=== PATIENT | male | born 1990 | race African-American/Black ===

== ENCOUNTER 2021-05-11 16:54 | Emergency (ER) | payer MEDICAID ==
[~2021-05-11] VITALS: Ht 167.6 cm; Wt 95.3 kg
--- NOTE | 2021-05-11 17:03 | NUR ---
CALLED FOR PATIENT, IS NOT IN LOBBY
[2021-05-11 17:09] VITALS: BP 138/67
[2021-05-11 17:25] VITALS: BP 138/67
--- NOTE | 2021-05-11 17:25 | NUR ---
Toni hong in ED - 05/11/21 at 1754 by MEDERICH Patient discharged with v/s stable. Written and verbal after care instructions about suture removal given and explained. Patient verbalized understanding. Ambulatory with steady gait. All questions addressed prior to discharge. Advised to follow up with PMD.
--- NOTE | 2021-05-11 17:25 | NUR ---
Patient asssessed, treated, and discharged with v/s stable. Written and verbal after care instructions about suture removal given and explained. Patient verbalized understanding. Ambulatory with steady gait. All questions addressed prior to discharge. Advised to follow up with PMD.
== END 2021-05-11 17:25 | disposition home or self-care (01) ==
LOC: MED 16:54
DX: S01.81XD Laceration without foreign body of other part of head, subsequent encounter (principal); X58.XXXD Exposure to other specified factors, subsequent encounter
CPT/HCPCS: 99281